=== PATIENT | female | born 1995 | race Caucasian/White ===

== ENCOUNTER 2020-01-02 10:29 | Day surgery (SDC) | payer OTHER, SELFPAY ==
[2019-12-30 14:22] VITALS: BMI 23.5
[2020-01-02] VITALS (7 sets, daily range): BP systolic 95–120; BP diastolic 56–67; PULSE 56–84; RESP 12–99; TEMP 36.2–36.8; O2SAT 97–99; BMI 23.5
[2020-01-02] MEDS: LACTATED RINGERS 1,000 ML 42 ML IV (11:37)
--- NOTE | 2020-01-02 12:28 | PM.PREOP ---
Pre-operative Note Interval Note History & Physical reviewed/Exam performed by Physician: Yes Changes to H&P: No
[2020-01-02] MEDS: CEFAZOLIN 2 GM/100 ML FROZ.PIGGY IV (13:06)
--- NOTE | 2020-01-02 13:42 | SUR.OPER ---
Supine on padded OR bed, head on pillow, arms secured on padded arm boards at <90 degrees abduction, legs uncrossed, safety belt at thigh, tape over blanket over lower legs.
[2020-01-02] MEDS: BUPIVACAINE 0.25% W/ EPI 30 ML VIAL INJ (14:45)
[2020-01-02] MEDS: ACETAMINOPHEN 325 MG TABLET 650 MG PO (15:25)
[2020-01-02] MEDS: OXYCODONE IR 5 MG TABLET PO (15:25)
[2020-01-02] MEDS: ONDANSETRON 4 MG/2 ML INJ IV (15:25)
--- NOTE | 2020-01-02 15:27 | PM.OP.1 ---
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 This has persisted despite conservative treatment. She had an MRI scan that demonstrated a lateral talar dome lesion with associated bone marrow edema as well as a torn ATFL off the talus and partially torn CFL. Patient has symptomatic instability and osteochondral lesions been indicated for debridement microfracture of the osteochondral lesion and repair of the lateral ankle ligaments. The risks and benefits of the procedure have been discussed with the patient even opportunity to ask questions. The risks of surgery include but are not limited to infection, malunion, nonunion, persistence of pain, damage to nerves and blood vessels, posttraumatic arthritis, DVT, PE, cardiopulmonary complications and . The patient expressed a thorough understanding of the risks and benefits of surgery and has elected to proceed. Consent was signed in the office. The postoperative protocol in 6 weeks nonweightbearing were discussed with the patient in detail. DVT risks were discussed. She will use aspirin for DVT prophylaxis. Surgeon: Dyana Lombardi Click Yes if Unassisted: Yes Anesthesia Type: General and Local Operative Notes Findings: Attenuated distal end of the ATFL at the talus was encountered. This is consistent with the MRI. CFL was also attenuated.. The ATFL was repaired with a suture tack into the talus to secure the distal end of the ATFL and then to suture anchors into the fibula for the standard Brostrom repair. CFL was repaired with a 2 0 FiberWire suture through a bone tunnel in the fibula. The talar OCL was repaired through an arthrotomy utilizing the curette and microfracture awls. Closure Type: primary Specimen(s): none sent Prosthetic devices, grafts, tissues, transplants, or devices: Arthrex 3 x 3.0 suture tack anchors Estimated Blood Loss (mL): 10 Blood products transfused: none Tourniquet time (min): 58 Procedure in detail: Patient was seen in the preoperative area the site of surgery was marked informed consent confirmed. The patient was then brought back to the operating room by the anesthesia team. The patient was positioned supine on operative table. A well-padded thigh tourniquet was placed. An SCD was placed on the contralateral lower extremity. General anesthesia was administered. Was at this time it was discovered that the corrects interface for the well leg fournier and bed clamp was not available for positioning for the arthroscopic portion of the procedure. This was not able to be rectified. Fortunately the lateral position of the talar defect limited itself to approach through a limited lateral arthrotomy of the ankle which would be able to be done easily through the same incision as the Brostrom repair. At this point decision was made to continue on without the arthroscopic instruments. The left lower extremities prepped and draped in the standard sterile fashion. Supine with a thigh bump was utilized. Formal time-out procedure was performed confirming the patient's side and site of surgery administration of preoperative antibiotics and presence of informed consent. All were in agreement. Attention turned to the left lower extremity. The incision was marked out. Esmarch was used for exsanguination the tourniquet was elevated on the thigh to 250 mm of mercury and stayed there for 58 minutes. A longitudinal and extensile incision was made following the peroneal tendons around the distal end of the fibula towards the talus. This taken down through the skin subcutaneous tissue. Peroneal sheath was then opened. A [place] was placed within the sheath and extended distally. Then used the [place] as a backboard the knife was used to open the remainder of the peroneal sheath distally protecting the peroneal tendons. Peroneal tendons were inspected. There was a little bit of low-lying belly that was debrided otherwise were these were intact. Next attention was turned to the lateral ankle ligaments. The ATFL was attenuated at its distal aspect off the talus. A anterior arthrotomy into the lateral gutter was made for exposure of the talar dome this was eventually carried around the distal fibula a detaching the proximal ATFL for standard Brostrom repair in order to carry this out as well as facilitate exposure to the OCL allowing increased talar tilt. With plantar flexion the talar dome lesion was easily exposed. There was a elevated cartilage flap. This was trimmed. Additionally the curette were utilized removing additional unstable cartilage around the edges of the osteochondral defect. Once this was completed joint was irrigated and then micro fractured using the awls in standard technique. This provided good bleeding bone. Attention was then turned to the Brostrom lateral ligament repair. Due to the unusual circumstance of the distal rupture a 3.0 suture tack was placed in the talus distally. This was brought up through the distal edge of the ATFL and then tied over in a horizontal mattress fashion securing the distal edge of the ATFL to the talar insertion. Then the standard prep preparation of the distal fibula was carried out using the rongeur and 2 suture tacks were placed in the proximal insertion points. Prior to these being tied a 2 0 FiberWire was taken through the CFL and then brought through bone tunnels in the fibula to be tied over a bone bridge. Before the sutures were tied the foot was placed into dorsiflexion eversion and held there for the repair. Both ATFL and CFL sutures were tightened and tied down. Additional sutures were utilized to incorporate the extensor retinaculum in the modified Brostrom Rock technique.. After this was completed the ankle was put under the mini C-arm and tested in talar tilt and anterior drawer and these were stable and improved from preoperative clinically and radiographically. Tourniquet was released hemostasis achieved and the wound was closed in a layered fashion with 2 O Vicryl in the peroneal sheath and subcutaneous tissue. Four 0 Monocryl subcutaneously in 3 0 nylon in the skin. A sterile dressing was placed with Xeroform gauze Webril and a posterior and U splint. Approximately 15 cc of local anesthetic was infiltrated. Patient was then woken from anesthesia and taken to recovery room in good condition. There no immediate complications from this procedure. All counts were correct. Complications: none Post-operative Condition: stable Disposition: PACU Plan for aftercare: Nonweightbearing left ankle x6 weeks. First 2 weeks splint. Patient will bring her boot to the 1st postop appointment. Sutures out at 2 weeks and into boot. When placed in boot may shower otherwise were boot at all times except for may do some dorsiflexion plantar flexion range of motion 3 times a day. May shower. Must wear boot at night. Continue nonweightbearing until 6 weeks, then start physical therapy and progressive weight-bearing. Aspirin for DVT prophylaxis.
--- NOTE | 2020-01-02 15:37 | SUR.PHASEI ---
Patient awake but drowsy, drinking gingerale without difficulty. VSS. Maintaining oxygen at room air sat of 96%. Skin is pink, warm and dry.
--- NOTE | 2020-01-02 15:51 | SUR.PHASEII ---
at bedside. All instructions discussed with . Prescriptions given to prior to OR procedure.
--- NOTE | 2020-01-02 16:18 | SUR.PHASEII ---
Pt escorted to Main entrance via [facility]. Pts condition was stable upon discharge.
== END 2020-01-02 16:18 | disposition home or self-care (01) ==
LOC: OR 10:33
PROVIDERS: Referring Provider Orthopaedic Surgery Foot and Ankle Surgery; Visit Provider Orthopaedic Surgery Foot and Ankle Surgery
PROC: (CPT 27698; principal; 2020-01-02 11:45)
DX: M25.372 Other instability, left ankle (principal); M89.9 Disorder of bone, unspecified; W17.89XA Other fall from one level to another, initial encounter; Y93.B2 Activity, push-ups, pull-ups, sit-ups
CPT/HCPCS: 27698; J0690; J2250; J2405; J3010

== ENCOUNTER → 2023-03-09 14:07 | Outpatient (CLI) | payer OTHER, SELFPAY ==
--- NOTE | 2023-03-09 | DI.RAD.S_ITS ---
PROCEDURE: XR FINGER LT MIN 2V INDICATIONS: crush injury to left index finger TECHNIQUE: AP hand, 2 views of the 2nd finger(s) acquired. COMPARISON: None. FINDINGS: Bones: Linear lucency traverses the distal tuft of the distal phalanx of the 2nd digit. Soft tissues: No suspicious soft tissue calcifications. IMPRESSION: Minimally displaced distal tuft fracture of 2nd digit. Dictated by: Serena Meyers M.D. on 03/09/2023 at 15:35 Approved by: Serena Meyers M.D. on 03/09/2023 at 15:36
== END ==
PROVIDERS: PCP Family Medicine; Referring Provider Family Medicine; Visit Provider Family Medicine
DX: S67.191A Crushing injury of left index finger, initial encounter (principal); S62.661A Nondisplaced fracture of distal phalanx of left index finger, initial encounter for closed fracture; X58.XXXA Exposure to other specified factors, initial encounter
CPT/HCPCS: 73140

== ENCOUNTER → 2024-05-15 12:30 | Outpatient (CLI) | payer OTHER, SELFPAY ==
--- NOTE | 2024-05-15 12:34 | DI.RAD.S_ITS ---
PROCEDURE: XR FINGER RT MIN 2V INDICATIONS: THUMB INJURY TECHNIQUE: AP hand, 2 views of the 1st finger(s) acquired. COMPARISON: None. FINDINGS: Bones: Minimally displaced fracture at the distal tuft of the 1st distal phalanx. Soft tissues: No suspicious soft tissue calcifications. IMPRESSION: Minimally displaced 1st distal tuft fracture. Dictated by: Debbie Rod M.D. on 05/15/2024 at 16:38 Approved by: Debbie Rod M.D. on 05/15/2024 at 16:38
== END ==
LOC: RAD 12:33
PROVIDERS: PCP Family Medicine; Referring Provider Family Medicine; Visit Provider Family Medicine
DX: S62.524A Nondisplaced fracture of distal phalanx of right thumb, initial encounter for closed fracture (principal); X58.XXXA Exposure to other specified factors, initial encounter
CPT/HCPCS: 73140

== ENCOUNTER → 2025-02-11 15:05 | Outpatient (CLI) | payer OTHER, SELFPAY ==
--- NOTE | 2025-02-11 15:44 | DI.MRI.S_ITS ---
PROCEDURE: MR KNEE LT WO CON INDICATIONS: left knee pain TECHNIQUE: Noncontrast sagittal PD fast spin echo and T2 fast spin echo with fat saturation, sagittal 3-D FLASH with fat saturation; coronal T1 spin echo and PD fast spin echo with fat saturation, and axial PD fast spin echo with fat saturation through the knee. COMPARISON: None. FINDINGS: Image quality: Excellent. Menisci: Mild extrusion of the medial meniscus body, without tear. The lateral meniscus is unremarkable. Cruciate ligaments: Full-thickness tear of the proximal ACL. The PCL is intact. Medial structures: The medial collateral ligament appears intact. The posterior oblique ligament, semimembranosus tendon insertions, oblique popliteal ligament, and meniscocapsular junction appear intact. Visualized portions of the pes anserinus tendons appear normal. No abnormal bursal fluid. Lateral structures: The lateral collateral ligament, long and short heads of the biceps femoris tendon appear intact. The popliteus tendon appears normal; the popliteofibular ligament appears intact. The posterosuperior and anteroinferior popliteomeniscal fascicles appear intact. The arcuate and fabellofibular ligaments appear intact, on either side of the lateral inferior geniculate artery. Iliotibial band appears normal. Anterior structures: The quadriceps and patellar tendons appear intact. Mild superolateral Hoffa's fat pad edema, raising concern for patellar maltracking. Mild lateral tilt of the patella. The medial and lateral patellofemoral ligaments are intact. Bones and cartilage: There is multifocal low-grade chondral fissuring in the median ridge of the patella. Cartilage of the trochlea is unremarkable. The cartilage of the medial and lateral compartments are grossly well maintained. There is mild marrow edema of the posterior medial tibial plateau, about the tibial eminence, nonspecific and may represent mild marrow contusion. Joint space: Small knee effusion. No popliteal cyst. Popliteal vasculature is unremarkable. No intra-articular body. IMPRESSION: 1. Full-thickness tear of the proximal ACL. 2. Findings suggestive of patellar maltracking. 3. Mild chondrosis of the patellofemoral compartment. 4. Mild marrow contusion of the posterior medial tibial plateau, about the tibial eminence. Dictated by: Eladia Corbin M.D. on 02/11/2025 at 17:26 Approved by: Eladia Corbin M.D. on 02/11/2025 at 17:37
== END ==
PROVIDERS: PCP Family Medicine; Referring Provider Orthopaedic Surgery Sports Medicine; Visit Provider Orthopaedic Surgery Sports Medicine
DX: S83.512D Sprain of anterior cruciate ligament of left knee, subsequent encounter (principal); M25.462 Effusion, left knee; M22.42 Chondromalacia patellae, left knee; W01.0XXD Fall on same level from slipping, tripping and stumbling without subsequent striking against object, subsequent encounter
CPT/HCPCS: 73721